=== PATIENT | female | born 1990 | race Caucasian/White ===

== ENCOUNTER 2016-07-30 08:07 | Emergency (ER) | payer OTHER ==
[2016-07-30 08:17] VITALS: BP 141/104
[2016-07-30] MEDS ORDERED: DEXAMETHASONE 10 MG/ML VIAL PO STA (08:54)
[2016-07-30] MEDS ORDERED: NEOMYCIN/POLYMYX/HC OTIC DROPS ONE (08:54)
[2016-07-30] MEDS ORDERED: NEOMYCIN/POLYMYX/HC OTIC DROPS RIGHTEAR STA (08:54)
[2016-07-30] MEDS ORDERED: CHERRY SYRUP 10 ML UDC PO ONE (08:58)
[2016-07-30] MEDS ORDERED: DEXAMETHASONE 10 MG/ML VIAL ONE (08:58)
--- NOTE | 2016-07-30 09:07 | ED Physician Documentation ---
PD HPI HEENT - Stated complaint Stated Complaint: R EAR PX - Chief complaint Chief Complaint: Heent - History obtained from History obtained from: Patient, Family - History of Present Illness Timing - onset: How many weeks ago (1) Timing - duration: Weeks (1) Timing - details: Gradual onset, Still present Location: Right ear Improves: Heat Worsens: Other (palpation) Associated symptoms: Congestion. No: Cough Similar symptoms before: Diagnosis (OM) Recently seen: Not recently seen - Additional information Additional information: 25 y/o female developed pain in the right ear about a week ago. She has had OM 2 times in the past 8 months and she got into the tub to ease the pain in the middle of the week and the pain is much wore this morning. She has not had a cough or fever. She does not have a history of diabetes. Review of Systems Constitutional: denies: Fever Eyes: denies: Decreased vision Ears: reports: Loss of hearing, Ear pain Nose: reports: Congestion Throat: denies: Sore throat Respiratory: denies: Dyspnea, Cough GI: denies: Vomiting PD PAST MEDICAL HISTORY - Past Medical History Past Medical History: No - Past Surgical History Past Surgical History: No - Present Medications Home Medications: Ambulatory Orders Medication Instructions Recorded Confirmed Azithromycin [Zithromax] 250 mg PO DAILY #6 tablet 07/30/16 Neomycin/Polymyx/Hc Otic Drops 4 drops RIGHTEAR TID #1 bottle 07/30/16 [Cortisporin Ear Susp] - Allergies Allergies/Adverse Reactions: Allergies Allergy/AdvReac Type Severity Reaction Status Date / Time No Known Drug Allergies Allergy Verified 07/30/16 08:17 - Social History Does the pt smoke?: No Smoking Status: Never smoker Does the pt drink ETOH?: No Does the pt have substance abuse?: No - Immunizations Immunizations are current?: Yes PD ED PE NORMAL - Vitals Vital signs reviewed: Yes (hypertensive ) - General General: Alert and oriented X 3, No acute distress, Well developed/nourished - HEENT HEENT: Atraumatic, PERRL, EOMI, Other (The right ear canal is swollen and erythematous and I am not able to visualize the TM. There is pain to push on the pinnna and to pull on the tragus. There is marked inflamation of the visible left TM. ) - Neck Neck: Supple, no meningeal sign, No bony TTP - Cardiac Cardiac: RRR, No murmur - Respiratory Respiratory: No respiratory distress, Clear bilaterally - Back Back: No CVA TTP, No spinal TTP - Derm Derm: Normal color, Warm and dry, No rash - Extremities Extremities: No deformity, No edema - Neuro Neuro: No motor deficit, No sensory deficit - Psych Psych: Normal mood, Normal affect Results - Vitals Vitals: Vital Signs - 24 hr 07/30/16 08:10 Temperature 37.1 C Heart Rate 94 Respiratory 18 Rate Blood Pressure 141/104 H O2 Saturation 98 Oxygen O2 Source Room air - Labs Labs: Laboratory Tests 07/30/16 09:05 POC Whole Bld Glucose 112 H PD MEDICAL DECISION MAKING - ED course Complexity details: considered differential, d/w patient, d/w family ED course: 25 y/o female with acute right OE also has OM on the left and a history of BOM previously. I suspect that the OE is secondary to her getting into the tub to alleviate the pain and her blood sugar is normal this morning. Here in the ED a wick is placed into the right canal, she is given O decadron and we will put her on some zithromax. Departure - Departure Disposition: 01 Home, Self Care Clinical Impression: Otitis media Qualifiers: Otitis media type: suppurative Laterality: bilateral Chronicity: acute Recurrence: recurrent Spontaneous tympanic membrane rupture: without spontaneous rupture Qualified Code(s): H66.006 - Acute suppurative otitis media without spontaneous rupture of ear drum, recurrent, bilateral Otitis externa Qualifiers: Otitis externa type: swimmer's ear Laterality: right Chronicity: acute Qualified Code(s): H60.331 - Swimmer's ear, right ear Condition: Stable Instructions: ED Otitis Media Acute Adult, ED Otitis Externa Follow-Up: [facility] [Provider Group] [facility] [Provider Group] Prescriptions: Neomycin/Polymyx/Hc Otic Drops [Cortisporin Ear Susp] 4 drops RIGHTEAR TID #1 bottle Azithromycin [Zithromax] 250 mg PO DAILY #6 tablet Comments: Today in the Emergency Department your blood pressure was elevated. This can happen from the stress of the visit itself, from a current illness or circumstance or from uncontrolled hypertension. If you take blood pressure medications take your usual mediations, have your blood pressure re-checked in an appropriate setting and follow up any elevation with your primary care doctor. Forms: Activity restrictions
== END 2016-07-30 09:19 | disposition home or self-care (01) ==
LOC: ED 08:07
DX: H66.006 Acute suppurative otitis media without spontaneous rupture of ear drum, recurrent, bilateral (principal); H60.331 Swimmer's ear, right ear
CPT/HCPCS: 99283; A9270

== ENCOUNTER 2017-01-20 16:05 | Outpatient (CLI) | payer OTHER ==
[2017-01-20 16:32] LABS: BASOPHILS # (AUTO) 0.1 10^3/uL (0.0-0.1); BASOPHILS % (AUTO) 0.8 %; EOSINOPHILS # (AUTO) 0.2 10^3/uL (0.0-0.7); EOSINOPHILS % (AUTO) 1.4 %; HCT - HEMATOCRIT 38.9 % (37.0-47.0); HGB - HEMOGLOBIN 13.5 g/dL (12.0-16.0); LYMPHOCYTES # (AUTO) 3.2 10^3/uL (1.5-3.5); LYMPHOCYTES % (AUTO) 22.5 %; MEAN CORPUSCULAR HEMOGLOBIN 28.8 pg (27.0-31.0); MEAN CORPUSCULAR HGB CONC 34.6 g/dL (32.0-36.0); MEAN CORPUSCULAR VOLUME 83.2 fL (81.0-99.0); MONOCYTES # (AUTO) 1.1 10^3/uL (0.0-1.0); MONOCYTES % (AUTO) 7.6 %; NEUTROPHILS # (AUTO) 9.8 10^3/uL (1.5-6.6); NEUTROPHILS % (AUTO) 67.7 %; RED BLOOD COUNT 4.68 10^6/uL (4.20-5.40); RED CELL DISTRIBUTION WIDTH 13.3 % (12.0-15.0); UNCORRECTED WHITE BLOOD COUNT 14.4 x10^3/uL; WHITE BLOOD COUNT 14.4 x10^3/uL (4.8-10.8)
[2017-01-20 16:51] LABS: BILIRUBIN,URINE NEGATIVE (NEGATIVE)
[2017-01-20 17:15] LABS: WBC,URINE 0-3 /HPF (0-5)
[2017-01-20 17:23] LABS: HEMOGLOBIN A1C 0.53 g/dL
[2017-01-21 06:23] LABS: TEST RESULT REPORT
== END 2017-01-20 16:06 | disposition home or self-care (01) ==
LOC: LAB 16:05
PROVIDERS: ATTEND Registered Nurse
DX: Z36.9 Encounter for antenatal screening, unspecified (principal); E66.01 Morbid (severe) obesity due to excess calories
CPT/HCPCS: 36415; 81001; 81599; 83036; 85025; 86762; 86850; 86900; 86901; 87340; 87389

== ENCOUNTER 2017-03-16 09:31 | Outpatient (CLI) | payer OTHER | END 2017-03-16 09:32 | disposition home or self-care (01) | LOC: LAB 09:31 | PROVIDERS: ATTEND Registered Nurse | DX: O99.12 Other diseases of the blood and blood-forming organs and certain disorders involving the immune mechanism complicating childbirth (principal) | CPT/HCPCS: 36415; 81599; 82950 ==

== ENCOUNTER 2017-03-24 08:00 | Outpatient (CLI) | payer OTHER | END 2017-03-24 08:01 | disposition home or self-care (01) | LOC: LAB 08:00 | PROVIDERS: ATTEND Registered Nurse | DX: R73.02 Impaired glucose tolerance (oral) (principal) | CPT/HCPCS: 36415; 82951 ==

== ENCOUNTER 2017-05-01 07:38 | Outpatient (CLI) | payer OTHER ==
--- NOTE | 2017-05-02 10:54 | Ultrasound Report ---
OB ULTRASOUND: 05/01/2017 CLINICAL INDICATION: anatomy. TECHNIQUE: Real-time scanning was performed with sales support representative static images obtained. LAST MENSTRUAL PERIOD 12/03/2016 Clinical Age --- US Age 21 weeks 1 day EFW Hadlock 414 g EFW% Hadlock --- Heart Rate 144 bpm EDC --- US EDC 09/10/2017 BPD Hadlock 20 weeks 6 days; Mean mm 48.9 HC Hadlock 20 weeks 6 days; Mean mm 184.3 AC Hadlock 21 weeks 3 days; Mean mm 162.9 FL Hadlock 21 weeks 3 days; Mean mm 36.0 Presentation cephalic Placental Location anterior Cervical Length 4.2 cm Amniotic Fluid 4.6 cm FINDINGS: There is a single viable intrauterine gestation, in cephalic presentation. heart rate is 144 BPM. The placenta is anterior, without evidence of previa. Amniotic fluid volume is subjectively normal, with a deepest pocket of 4.6 cm. By size, the fetus measures 21 weeks 1 day (uncertain LMP). The following anatomic structures were visualized and appear normal: The intracranial contents, including the ventricles and posterior fossa; the lips and orbits; the spine; the heart, including 4 chamber view and outflow tracts, and diaphragm; the abdominal contents, including the stomach, the bilateral kidneys, and urinary bladder, as well as a normal 3 vessel cord insertion; 4 limbs. IMPRESSION: SINGLE VIABLE INTRAUTERINE GESTATION, MEASURING 21 WEEKS 1 DAY BY SIZE. NORMAL ANATOMIC SURVEY. [facility]
== END 2017-05-01 07:39 | disposition home or self-care (01) ==
LOC: DI 07:38
PROVIDERS: ATTEND Nurse Practitioner Obstetrics & Gynecology
DX: Z36.9 Encounter for antenatal screening, unspecified (principal)
CPT/HCPCS: 76811

== ENCOUNTER 2017-06-07 08:11 | Outpatient (CLI) | payer OTHER ==
[2017-06-07 09:33] LABS: HGB - HEMOGLOBIN 12.5 g/dL (12.0-16.0); MEAN CORPUSCULAR HEMOGLOBIN 27.6 pg (27.0-31.0); MEAN CORPUSCULAR HGB CONC 33.8 g/dL (32.0-36.0); MEAN CORPUSCULAR VOLUME 81.5 fL (81.0-99.0); MEAN PLATELET VOLUME 8.5 fL (7.9-10.8); RED BLOOD COUNT 4.53 10^6/uL (4.20-5.40); RED CELL DISTRIBUTION WIDTH 14.3 % (12.0-15.0); WHITE BLOOD COUNT 16.8 x10^3/uL (4.8-10.8)
== END 2017-06-07 08:12 | disposition home or self-care (01) ==
LOC: LAB 08:11
PROVIDERS: ATTEND Registered Nurse
DX: Z34.82 Encounter for supervision of other normal pregnancy, second trimester (principal)
CPT/HCPCS: 36415; 82950; 86850

== ENCOUNTER 2017-06-12 08:41 | Outpatient (CLI) | payer OTHER ==
[2017-06-12 10:06] VITALS: BP 133/85
== END 2017-06-12 10:00 | disposition home or self-care (01) ==
LOC: WFO 08:41 → FBP 08:46 → WFO 10:00
PROVIDERS: ATTEND Obstetrics & Gynecology
DX: O99.212 Obesity complicating pregnancy, second trimester (principal); E66.01 Morbid (severe) obesity due to excess calories; O99.282 Endocrine, nutritional and metabolic diseases complicating pregnancy, second trimester; R73.9 Hyperglycemia, unspecified; Z3A.27 27 weeks gestation of pregnancy; E04.9 Nontoxic goiter, unspecified
CPT/HCPCS: 36415; 59025; 84439; 84443; 84481

== ENCOUNTER 2017-06-12 10:05 | Outpatient (CLI) | payer OTHER ==
[2017-06-12 11:29] LABS: THYROID STIMULATING HORMONE 2.41 uIU/mL (0.34-5.60)
[2017-06-12 11:32] LABS: FREE T4 (FREE THYROXINE) 0.61 ng/dL (0.58-1.64)
== END 2017-06-12 10:06 | disposition home or self-care (01) ==
LOC: LAB 10:05
PROVIDERS: ATTEND Obstetrics & Gynecology
DX: E04.9 Nontoxic goiter, unspecified (principal)
CPT/HCPCS: 36415; 84439; 84443; 84481

== ENCOUNTER 2017-06-16 06:57 | Outpatient (CLI) | payer OTHER | END 2017-06-16 06:58 | disposition home or self-care (01) | LOC: LAB 06:57 | PROVIDERS: ATTEND Obstetrics & Gynecology | DX: Z36.9 Encounter for antenatal screening, unspecified (principal) | CPT/HCPCS: 36415; 82951 ==

== ENCOUNTER 2017-06-19 08:41 | Outpatient (CLI) | payer OTHER ==
[2017-06-19 09:06] VITALS: BP 123/77
== END 2017-06-19 09:30 | disposition home or self-care (01) ==
LOC: WFO 08:41 → FBP 08:45 → WFO 09:30
PROVIDERS: ATTEND Obstetrics & Gynecology
DX: O99.213 Obesity complicating pregnancy, third trimester (principal); E66.01 Morbid (severe) obesity due to excess calories; Z68.42 Body mass index [BMI] 45.0-49.9, adult; Z3A.28 28 weeks gestation of pregnancy
CPT/HCPCS: 59025

== ENCOUNTER 2017-06-26 08:41 | Outpatient (CLI) | payer OTHER ==
[2017-06-26 09:50] VITALS: BP 128/87
== END 2017-06-26 09:35 | disposition home or self-care (01) ==
LOC: WFO 08:41 → FBP 08:46 → WFO 09:35
PROVIDERS: ATTEND Obstetrics & Gynecology
DX: O16.3 Unspecified maternal hypertension, third trimester (principal); O99.213 Obesity complicating pregnancy, third trimester; Z3A.29 29 weeks gestation of pregnancy
CPT/HCPCS: 36415; 59025; 80053; 82570; 83615; 84156; 84550

== ENCOUNTER 2017-06-26 11:30 | Outpatient (CLI) | payer OTHER ==
[2017-06-26 12:59] LABS: CREATININE,URINE 137.3 mg/dL; PROTEIN/CREATININE RATIO,URINE 0.1 (<=0.2)
[2017-06-26 13:04] LABS: ALBUMIN 3.2 g/dL (3.2-5.5); ALBUMIN/GLOBULIN RATIO 0.8 (1.0-2.2); BILIRUBIN,TOTAL 0.3 mg/dL (0.2-1.0); CALCIUM 8.9 mg/dL (8.5-10.3); CREATININE 0.4 mg/dL (0.4-1.0); TOTAL PROTEIN 7.3 g/dL (6.7-8.2); URIC ACID 4.1 mg/dL (2.6-7.2)
== END 2017-06-26 11:31 | disposition home or self-care (01) ==
LOC: LAB 11:30
PROVIDERS: ATTEND Nurse Practitioner Obstetrics & Gynecology
DX: O99.213 Obesity complicating pregnancy, third trimester (principal)
CPT/HCPCS: 36415; 80053; 82570; 83615; 84156; 84550

== ENCOUNTER 2017-06-28 08:00 | Outpatient (CLI) | payer OTHER ==
[2017-06-28 08:41] LABS: TOTAL PROTEIN 24HR,URINE 180 mg/24hr (40-150); TOTAL PROTEIN,URINE TIMED 9 mg/dL; TOTAL VOLUME 24HRS,URINE 2000 mL
== END 2017-06-28 08:01 | disposition home or self-care (01) ==
LOC: LAB.R 08:00
PROVIDERS: ATTEND Nurse Practitioner Obstetrics & Gynecology
DX: O99.213 Obesity complicating pregnancy, third trimester (principal)
CPT/HCPCS: 84156

== ENCOUNTER 2017-07-03 08:43 | Outpatient (CLI) | payer OTHER ==
[2017-07-03 08:52] VITALS: BP 134/83
== END 2017-07-03 09:45 | disposition home or self-care (01) ==
LOC: WFO 08:43 → FBP 08:44 → WFO 09:45
PROVIDERS: ATTEND Obstetrics & Gynecology
DX: O99.213 Obesity complicating pregnancy, third trimester (principal); Z3A.30 30 weeks gestation of pregnancy
CPT/HCPCS: 59025

== ENCOUNTER 2017-07-07 10:29 | Outpatient (CLI) | payer OTHER | END 2017-07-07 10:30 | disposition home or self-care (01) | LOC: LAB.R 10:29 | PROVIDERS: ATTEND Registered Nurse | DX: N30.00 Acute cystitis without hematuria (principal) | CPT/HCPCS: 87086 ==

== ENCOUNTER 2017-07-10 08:41 | Outpatient (CLI) | payer OTHER ==
[2017-07-10 09:37] VITALS: BP 94/70
== END 2017-07-10 09:37 | disposition home or self-care (01) ==
LOC: WFO 08:41 → FBP 08:44 → WFO 09:37
PROVIDERS: ATTEND Nurse Practitioner Obstetrics & Gynecology
DX: O13.3 Gestational [pregnancy-induced] hypertension without significant proteinuria, third trimester (principal); Z3A.30 30 weeks gestation of pregnancy
CPT/HCPCS: 59025

== ENCOUNTER 2017-07-17 08:31 | Outpatient (CLI) | payer OTHER ==
[2017-07-17 08:53] VITALS: BP 136/80
--- NOTE | 2017-07-21 11:38 | CONSULTATION NOTE ---
Referring Provider Name of Referring Provider:: Joslyn Madison Consult Date: 07/21/17 (Called to evaluate 26 y/o female for anesthesia. Pt's history is benign except for morbid obesity (BMI 49.4), weight 290 pounds. Patient's airway is MP 1 with FROM. Back has a significant amount of adipose tissue, unable to palpate her spinous processes but was able to identify her superior iliac crests for landmarks. Patient is adament about having her baby at . I told her we could attempt an epidural if requested but there is always the possibility we would not be successful and/or we could place an intrathecal. I also told her about the possibility of a C section and a possible general anesthetic. She would like to proceed with having her baby here. ) History - Past Medical History MRSA Hx?: No Meds/Allgy - Home Medications Home Medications: Ambulatory Orders Medication Instructions Recorded Confirmed Azithromycin [Zithromax] 250 mg PO DAILY #6 tablet 07/30/16 Neomycin/Polymyx/Hc Otic Drops 4 drops RIGHTEAR TID #1 bottle 07/30/16 [Cortisporin Ear Susp] - Allergies Allergies/Adverse Reactions: Allergies Allergy/AdvReac Type Severity Reaction Status Date / Time No Known Drug Allergies Allergy Verified 07/30/16 08:17
== END 2017-07-17 09:15 | disposition home or self-care (01) ==
LOC: WFO 08:31 → FBP 08:33 → WFO 09:15
PROVIDERS: ATTEND Nurse Practitioner Obstetrics & Gynecology
DX: O13.3 Gestational [pregnancy-induced] hypertension without significant proteinuria, third trimester (principal); Z3A.32 32 weeks gestation of pregnancy; O99.89 Other specified diseases and conditions complicating pregnancy, childbirth and the puerperium; R16.0 Hepatomegaly, not elsewhere classified; O99.213 Obesity complicating pregnancy, third trimester; Z68.42 Body mass index [BMI] 45.0-49.9, adult
CPT/HCPCS: 59025

== ENCOUNTER 2017-07-24 11:23 | Outpatient (CLI) | payer OTHER ==
--- NOTE | 2017-07-24 15:24 | Ultrasound Report ---
OB FOLLOWUP: 07/24/2017 CLINICAL INDICATION: Obesity complicating . TECHNIQUE: Real-time scanning was performed with jewelry sales representative static images obtained. LAST MENSTRUAL PERIOD: 12/04/2016 Clinical Age: 33 weeks 1 day US Age: 32 weeks 5 days EFW Hadlock: 2123 grams EFW% Hadlock: 44% Heart Rate: 145 bpm EDC: 09/10/2017 US EDC: 09/13/2017 BPD Hadlock: 31 weeks 6 days; Mean mm 79 HC Hadlock: 32 weeks 3 days; Mean mm 294 AC Hadlock: 33 weeks 2 days; Mean mm 293 FL Hadlock: 33 weeks 2 days; Mean mm 64 Presentation: cephalic Placental Location: anterior Cervical Length: -- Amniotic Fluid: WYATT 18.5 cm; MVP 5.5 cm FINDINGS There is a single viable intrauterine gestation, in cephalic presentation. heart rate is 145 BPM. The placenta is anterior, without evidence of previa. Amniotic fluid volume is normal, with an WYATT of 18.5. By size, the fetus measures 32 weeks 5 days (31 weeks 1 day by previous sonogram ). Estimated weight by Hadlock method is 2123 grams, 44th percentile. No free fluid or adnexal lesion is appreciated. IMPRESSION: SINGLE VIABLE INTRAUTERINE GESTATION, WITH EXPECTED GROWTH. NORMAL AMNIOTIC FLUID INDEX. TD: 07/24/2017 12:18 MTDD
== END 2017-07-24 11:24 | disposition home or self-care (01) ==
LOC: DI 11:23
PROVIDERS: ATTEND Obstetrics & Gynecology
DX: O99.213 Obesity complicating pregnancy, third trimester (principal); Z3A.32 32 weeks gestation of pregnancy
CPT/HCPCS: 76816

== ENCOUNTER 2017-08-01 08:33 | Outpatient (CLI) | payer OTHER ==
[2017-08-01 08:47] VITALS: BP 136/85
== END 2017-08-01 09:11 | disposition home or self-care (01) ==
LOC: WFO 08:33 → FBP 08:37 → WFO 09:11
PROVIDERS: ATTEND Registered Nurse
DX: O13.3 Gestational [pregnancy-induced] hypertension without significant proteinuria, third trimester (principal); Z3A.39 39 weeks gestation of pregnancy
CPT/HCPCS: 36415; 59025; 80053; 82570; 84156; 84550

== ENCOUNTER 2017-08-01 09:16 | Outpatient (CLI) | payer OTHER ==
[2017-08-01 10:07] LABS: CREATININE,URINE 77.3 mg/dL; PROTEIN/CREATININE RATIO,URINE 0.1 (<=0.2)
[2017-08-01 10:39] LABS: ALBUMIN/GLOBULIN RATIO 0.7 (1.0-2.2); BILIRUBIN,TOTAL 0.4 mg/dL (0.2-1.0); CALCIUM 8.9 mg/dL (8.5-10.3); CREATININE 0.6 mg/dL (0.4-1.0); TOTAL PROTEIN 7.1 g/dL (6.7-8.2); URIC ACID 4.4 mg/dL (2.6-7.2)
== END 2017-08-01 09:17 | disposition home or self-care (01) ==
LOC: LAB 09:16
PROVIDERS: ATTEND Nurse Practitioner Obstetrics & Gynecology
DX: O13.3 Gestational [pregnancy-induced] hypertension without significant proteinuria, third trimester (principal)
CPT/HCPCS: 36415; 80053; 82570; 84156; 84550

== ENCOUNTER 2017-08-07 08:41 | Outpatient (CLI) | payer OTHER ==
[2017-08-07 09:41] VITALS: BP 113/58
== END 2017-08-07 09:35 | disposition home or self-care (01) ==
LOC: WFO 08:41 → FBP 08:43 → WFO 09:35
PROVIDERS: ATTEND Obstetrics & Gynecology
DX: O99.213 Obesity complicating pregnancy, third trimester (principal); E66.01 Morbid (severe) obesity due to excess calories; Z3A.35 35 weeks gestation of pregnancy
CPT/HCPCS: 59025

== ENCOUNTER 2017-08-14 08:14 | Outpatient (CLI) | payer OTHER ==
--- NOTE | 2017-08-14 14:31 | Ultrasound Report ---
OB FOLLOWUP: 08/14/2017 CLINICAL INDICATION: Obesity complicating , check growth. COMPARISON: 07/24/2017, 05/01/2017. TECHNIQUE: Real-time scanning was performed with manufacturer's service representative static images obtained. LAST MENSTRUAL PERIOD: 12/04/2016 Clinical Age: 36 weeks 1 day US Age: 35 weeks 1 day EFW Hadlock: 2761 grams EFW% Hadlock: 40.4% Heart Rate: 140 bpm EDC: 09/10/2017 US EDC: 09/17/2017 BPD Hadlock: 34 weeks 0 days; Mean mm 84 HC Hadlock: 34 weeks 2 days; Mean mm 307 AC Hadlock: 36 weeks 4 days; Mean mm 326 FL Hadlock: 35 weeks 3 days; Mean mm 69 Presentation: cephalic Placental Location: anterior Cervical Length: 3.7 cm Amniotic Fluid: WYATT 12.67 cm; MVP 4.0 cm FINDINGS There are a single viable intrauterine gestation, in cephalic presentation. heart rate is 140 BPM. The placenta is anterior, without evidence of previa. Amniotic fluid volume is normal, with an WYATT of 12.7. By size, the fetus measures 35 weeks 1 day. Estimated weight by Hadlock method is 2761 grams, 40th percentile for gestational age by initial sonogram. No free fluid or adnexal lesion is appreciated. IMPRESSION: SINGLE VIABLE INTRAUTERINE GESTATION, WITH EXPECTED GROWTH FROM PREVIOUS SONOGRAM. NORMAL WYATT. TD: 08/14/2017 10:35 MTDD
== END 2017-08-14 08:15 | disposition home or self-care (01) ==
LOC: DI 08:14
PROVIDERS: ATTEND Obstetrics & Gynecology
DX: O99.213 Obesity complicating pregnancy, third trimester (principal)
CPT/HCPCS: 76816

== ENCOUNTER 2017-08-18 14:06 | Outpatient (CLI) | payer OTHER | END 2017-08-18 14:07 | disposition home or self-care (01) | LOC: LAB.R 14:06 | PROVIDERS: ATTEND Nurse Practitioner Obstetrics & Gynecology | DX: Z36.85 Encounter for antenatal screening for Streptococcus B (principal) | CPT/HCPCS: 87081 ==

== ENCOUNTER 2017-08-21 08:42 | Outpatient (CLI) | payer OTHER ==
[2017-08-21 09:27] VITALS: BP 138/86
== END 2017-08-21 09:29 | disposition home or self-care (01) ==
LOC: WFO 08:42 → FBP 08:44 → WFO 09:29
PROVIDERS: ATTEND Obstetrics & Gynecology
DX: O13.9 Gestational [pregnancy-induced] hypertension without significant proteinuria, unspecified trimester (principal)
CPT/HCPCS: 59025

== ENCOUNTER 2017-08-28 08:40 | Outpatient (CLI) | payer OTHER ==
[2017-08-28 09:11] VITALS: BP 141/90
== END 2017-08-28 09:20 | disposition home or self-care (01) ==
LOC: WFO 08:40 → FBP 08:42 → WFO 09:20
PROVIDERS: ATTEND Obstetrics & Gynecology
DX: O13.3 Gestational [pregnancy-induced] hypertension without significant proteinuria, third trimester (principal); Z3A.38 38 weeks gestation of pregnancy
CPT/HCPCS: 59025